=== PATIENT | male | born 1990 | race Caucasian/White ===

== ENCOUNTER 2024-10-08 10:05 | Emergency (ER) | payer OTHER, SELFPAY ==
[2024-10-08 10:08] VITALS: BP 153/95; PULSE 96; RESP 20; TEMP 37.1; O2SAT 96
[2024-10-08] MEDS: Lidocaine/Epinephri/Tetracaine Topical Gel 3 ML (10:16)
--- NOTE | 2024-10-08 10:23 | ED.GENADUL_ITS ---
Discharge Plan Disposition Patient Disposition: Home Condition: Improving Discharge Details Clinical Impression: Laceration of left forearm ED Provider: Murphy Costello [place] Meds and New Rx's Prescriptions: Continued buprenorphine-naloxone [Suboxone] 8-2 mg film 1 film sublingual DAILY Discharge Instructions Instructions: Laceration Repair With Stitches ED Additional Instructions: Laceration repair without complication. Neuro, vascular, tendon intact. Tetanus status up-to-date. X-ray recommended but declined. You understand the risk of retained foreign body. Rest, elevate, cool compresses as tolerated. [id number] Tylenol and/or Motrin as directed for discomfort. Change antibiotic dressing once or twice daily as needed. Please watch for new or worsening symptoms and return immediately to the ER. Lastly, return to the ER in about 10-14 days for suture removal. HPI General Mode of arrival: ambulatory . Date/Time Provider Initiated Documentation: 10/08/24 10:11 . Limitations to Documentation: no limitations . Information obtained by: patient . History of Present Illness 34 year old M presents to the emergency department with the chief complaint of L arm lac, described as moderate, with intensity rated at 4. Quality is described as aching, and is localized to the left and upper extremity. Patient reports no radiation. Patient started experiencing this minute(s) (10) and it has been constant. No relieving factors improve symptom(s), No exacerbating factors reported . Patient notes no other symptoms.. Patient did receive the following treatments prior to arrival, none Related Data Home Medications ?Medication ?Instructions ?Recorded ?Confirmed buprenorphine 8 mg-naloxone 2 mg 1 film sublingual DAILY 10/08/24 10/08/24 sublingual film (Suboxone) Allergies Allergy/AdvReac Type Severity Reaction Status Date / Time No Known Allergies Allergy Verified 10/08/24 10:11 General Stated Complaint: Laceration DAJUAN: 4 Review of Systems Constitutional Constitutional: Denies fever(s) and Denies weakness Musculoskeletal Musculoskeletal: Denies arthralgias, Denies numbness, Denies stiffness and Denies tingling Integumentary/Breasts Skin/Breast: Denies rash Neurologic Neurologic: Denies numbness, Denies tingling and Denies weakness Exam Const General: cooperative, healthy appearing, comfortable and no acute distress Orientation: alert and awake [facility] Head: normal to inspection, normocephalic and atraumatic Mouth: moist mucous membranes Eyes Conjunctivae: conjunctivae normal Neck Neck: normal visual inspection, trachea midline and supple Resp Effort & Inspection: normal respiratory effort and able to speak in complete sentences Cardio Rate: regular rate Rhythm: regular rhythm Skin General skin exam: no rashes or lesions noted Neuro General: patient alert, patient awake, moves all extremities and no focal motor deficits Sensory Exam: no sensory deficits noted Extrem Elbow/forearm/wrist images: 2 1. 4 cm laceration. Bleeding controlled. Small debris noted within the laceration. Mild tenderness throughout. Demonstrates full range of motion of the elbow, wrist, digits. Full flexion, extension, abduction, adduction of all digits. EPL intact. Sensation intact throughout. Normal radial pulse and capillary refill. Psych Appearance: grossly normal Mental Status: mental status grossly normal Course Vital Signs Vital signs: Vital Signs Temperature 37.1 C 10/08/24 10:08 Pulse 96 H 10/08/24 10:08 Respiratory Rate 20 10/08/24 10:08 Blood Pressure 153/95 H 10/08/24 10:08 Pulse Oximetry 96 10/08/24 10:08 Temperature 37.1 C 10/08/24 10:08 Temperature Source Skin 10/08/24 10:08 Pulse 96 H 10/08/24 10:08 Respiratory Rate 20 10/08/24 10:08 Blood Pressure 153/95 H 10/08/24 10:08 Blood Pressure Position Sitting 10/08/24 10:08 Pulse Oximetry 96 10/08/24 10:08 Oxygen Delivery Method Room Air 10/08/24 10:08 Oxygen Flow Rate 0 10/08/24 10:08 Pain Level 5 10/08/24 10:08 Procedure Laceration Laceration 1: Date of Procedure: 10/08/24 Time of procedure: 11:22 Patient Consented: Verbally Site: upper extremity Side (If applicable): left Description: linear and contaminated Depth: simple, single layer Local anesthetic: LET(lidocaine epinephrine tetracaine) Pre-repair:: wound explored, irrigated extensively and deep structures intact Skin layer closed with: nylon Suture size: 4-0 Number of sutures:: 9 Technique: simple, interrupted Medical Decision Making 34-year-old [id number] male presents with a 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 Tetanus up-to-date for 124. No other injury. LET applied. Discussed standard of care would be obtain x-ray to rule out any retained foreign body. Low suspicion for acute fracture. Patient understands the risk and declines x-ray. He is of sound mind and has the ability to make his own medical decisions. Discussed additional analgesia with infiltrated lidocaine but patient declines. States that the LET is working well. Ample pressure irrigation and scrubbed with Hibiclens, all visual debris removed. Again the patient understands the risk of retained foreign body. Laceration repaired without complication, patient tolerated well, please see procedural note. Laceration was then dressed with a nonstick antibiotic compression dressing. Standard sutured laceration wound care provided. Standard discharge and return precautions were provided. Patient understands, is agreeable to this plan, and has no additional questions or concerns upon discharge. This documentation was generated using [employer] dictation system, please disregard any oddities of phrase or misspellings. Quality:SDOH Health Related Social Needs: 2 No Data to Display PFSH All Active Problems (Updated 10/08/24 @ 11:29 by NUVIA Joseph) Laceration of left forearm (Acute) Social History Smoking/Tobacco Use Status: Current every day Tobacco Type: cigarettes Years smoked: 10 Smoking risk assessment performed?: Yes Alcohol Intake: never Drug use: Never Substance use type: does not use Do you feel safe at home: Yes Do you feel safe in your relationship?: Yes
== END 2024-10-08 11:33 | disposition home or self-care (01) ==
PROVIDERS: Emergency Provider Physician Assistant
DX: S51.812A Laceration without foreign body of left forearm, initial encounter (principal); X58.XXXA Exposure to other specified factors, initial encounter; Y99.0 Civilian activity done for income or pay
CPT/HCPCS: 12002